=== PATIENT | female | born 1990 | race Caucasian/White ===

== ENCOUNTER 2019-07-31 13:22 | Emergency (ER) | payer OTHER ==
[~2019-07-31] VITALS: Ht 160 cm; Wt 70.3 kg
[2019-07-31] MEDS ORDERED: ZOLOFT25 MG PO (13:38)
[2019-07-31] MEDS ORDERED: HYDROXYZINE HCL25 M2 PO (14:14)
[2019-07-31 14:34] VITALS: BP 145/75
== END 2019-07-31 14:34 | disposition home or self-care (01) ==
LOC: M.ERS 13:22
DX: F41.9 Anxiety disorder, unspecified (principal); F60.0 Paranoid personality disorder

== ENCOUNTER 2021-02-24 14:23 | Emergency (ER) | payer OTHER ==
[~2021-02-24] VITALS: Ht 160 cm; Wt 60.8 kg
[~2021-02-24 14:23] MED LIST: HYDROXYZINE HCL25 M2 PO; ZOLOFT25 MG PO
[2021-02-24 16:11] VITALS: BP 150/99
--- NOTE | 2021-02-25 09:50 | EKG ---
[place] [address] ELECTROCARDIOGRAM REPORT Name: GOMEZ JACOBANGELITON Room: [facility]#: [id number] Admission: 02/24/21 Attend Phys: Discharge: 02/24/21 Date of : 88 Date of Service: 02/24/21 1529 Report #: [id number] THIS REPORT FOR: //name// [facility] ED Test Date: 2021-02-24 Test Time: 15:29:45 Pat Name: JAE JAMES Department: Room: Gender: F Cop: : 1990 Requested By: Shen Kate Order Number: [id number] MD: Prem Jordan Measurements Intervals [place] Rate: 74 P: 1 IN: 130 QRS: 64 QRSD: 83 T: 16 QT: 376 QTc: 418 Interpretive Statements Sinus rhythm No previous ECG available for comparison Electronically Signed On 02-25-2021 9:50:29 CDT by Prem Jordan [email or web address] <ELECTRONICALLY SIGNED> By: Prem Jordan MD, [facility] 02/25/21 0950 1529 1529 Prem Jordan MD, [facility] /EPI
== END 2021-02-24 16:15 | disposition home or self-care (01) ==
LOC: M.ERS 14:23
DX: F41.9 Anxiety disorder, unspecified (principal); R20.8 Other disturbances of skin sensation; R05.9 Cough, unspecified; R04.2 Hemoptysis; Z88.8 Allergy status to other drugs, medicaments and biological substances